=== PATIENT | male | born 1935 | race Caucasian/White ===

== ENCOUNTER 2020-05-02 12:35 | Outpatient (CLI) | payer MEDICARE ==
--- NOTE | 2020-05-02 13:17 | RAD ---
EXAM: 2 views of the left hip HISTORY: Closed fracture of the left hip status post pinning one month ago COMPARISON: None FINDINGS: 2 views of the left hip shows the patient is status post ORIF of a proximal left femur frac ture. The fracture of the femoral neck appears to have healed. No perihardware lucency is seen. IMPRESSION: Status post ORIF of left femoral neck fracture
== END 2020-05-02 12:36 | disposition home or self-care (01) ==
LOC: BICRAD 12:35
PROVIDERS: ATTEND Family Medicine
DX: S72.002S Fracture of unspecified part of neck of left femur, sequela (principal); Z98.890 Other specified postprocedural states

== ENCOUNTER 2020-09-19 18:18 | Emergency (ER) | payer MEDICARE ==
[2020-09-19 19:16] LABS: Bilirubin Negative (Negative); Blood, Urine Negative (Negative); Glucose, Urine (Dipstick) Negative (Negative); Ketone, Urine Negative (Negative); Leukocyte Negative (Negative); Nitrite Negative (Negative); Protein, Urine (Dipstick) Negative (Neg-Trace); Specific Gravity, Urine 1.025 (1.005-1.030)
[2020-09-19 19:18] LABS: #Lymphocytes 0.6 thou/uL (1.20-3.40); #Monocytes 0.4 thou/uL (0.11-0.59); #Neutrophils 2.5 thou/uL (1.40-6.50); %Basophils 0.5 % (0.0-1.0); %Eosinophils 0.6 % (0.0-10.0); %Lymphocytes 17.9 % (21.0-51.0); %Monocytes 10.7 % (0.0-10.0); %Neutrophils 70.4 % (42.0-75.0); Hemoglobin 11.1 g/dL (14.0-18.0); Mean Corpuscular HGB CONC 33.8 g/dL (32.0-36.0); Mean Corpuscular Hemoglobin 29.2 pg (27.0-31.0); Mean Corpuscular Volume 86.5 fL (78.0-98.0); Mean Platelet Volume 8.4 fL (7.4-10.4); Platelet Count 173 thou/uL (130-400); RBC Distribution Width 14.4 % (11.5-14.5); Red Blood Cell (RBC) Count 3.79 mill/uL (4.70-6.10); White Blood Cell (WBC) Count 3.5 thou/uL (4.8-10.8)
[2020-09-19 19:19] LABS: Clarity Clear (Clear)
[2020-09-19 19:24] LABS: INR-International Normal Ratio 1.2; Prothrombin Time 15.5 sec (12.0-14.7)
[2020-09-19 19:25] LABS: PTT 37.2 sec (22.9-36.1)
[2020-09-19 19:49] LABS: ALT (SGPT) 17 U/L (8-55); AST (SGOT) 30 U/L (5-34); Albumin 3.3 g/dL (3.4-4.8); Alkaline Phosphatase 83 U/L (40-110); Anion Gap 12 mmol/L (10-20); BUN (Urea Nitrogen) 11 mg/dL (8.4-25.7); Bilirubin, Total 0.6 mg/dL (0.2-1.2); Calc. Creatinine Clearance 0 mL/min (70-130); Calcium 8.6 mg/dL (7.8-10.44); Carbon Dioxide 28 mmol/L (23-31); Chloride 100 mmol/L (98-107); Estimated GFR-MDRD Greater than 90; Globulin 2.8 g/dL (2.4-3.5); Glucose 105 mg/dL (83-110); Potassium 3.6 mmol/L (3.5-5.1); Protein, Total 6.1 g/dL (5.8-8.1); Sodium 136 mmol/L (136-145)
--- NOTE | 2020-09-19 19:51 | ULT ---
EXAM: Right lower extremity venous Doppler HISTORY: Right lower extremity swelling/edema. Covid positive. FINDINGS: Grayscale, color-flow, Doppler evaluation, spectral analysis of the right lower extremity venous stru ctures is performed with 2-D imaging. The right common femoral, superficial femoral, popliteal, posterior tibial, proximal greater saphenous and profunda femoral veins are imaged. There is normal luminal compressibility, flow, and augmentation in the visualized deep venous structu res of the right lower extremity. There is a complex cystic structure with internal echogenic material seen posterior to the right kidn ey which measures 5.2 cm x 2 cm x 3.4 cm. Color flow evaluation does not demonstrate flow within this structure. 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 Hematoma would be difficult to exclude. IMPRESSION: 1. 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 Hematoma in this region cannot be entirely excluded. Given the complexity of this structure, follow-up ultrasound examination in 3 months is recommended. 2. No evidence of a deep vein thrombosis in the visualized deep venous structures right lower extremi ty.
== END 2020-09-19 21:43 ==
LOC: ERS 18:18
DX: U07.1 COVID-19 (principal); L95.8 Other vasculitis limited to the skin; L03.116 Cellulitis of left lower limb; L03.115 Cellulitis of right lower limb; I10 Essential (primary) hypertension; I48.91 Unspecified atrial fibrillation; F03.90 Unspecified dementia, unspecified severity, without behavioral disturbance, psychotic disturbance, mood disturbance, and anxiety; Z79.899 Other long term (current) drug therapy
CPT/HCPCS: 36415; 51701; 80053; 81003; 85025; 85610; 85730; 93005